=== PATIENT | male | born 1990 | race Caucasian/White ===

== ENCOUNTER 2016-09-09 14:27 | Outpatient (RCR) | payer MEDICAID ==
[~2016-09-09 14:27] MED LIST: CLTR1C90 TP; DIAZ2.5K RC; DIAZEPAM 20 MG RC; DIVA125C3 PO; DVL125C PO; TOPI15CA6 PO; TOPI25CA2 PO; [UNRECOGNIZED DRUG - CODE] MC; [UNRECOGNIZED DRUG - SUPPLY]
== END 2016-09-13 13:33 | disposition home or self-care (01) ==
PROVIDERS: ATTEND Psychiatry & Neurology Neurology
DX: R53.1 Weakness (principal)

== ENCOUNTER 2017-02-18 22:10 | Emergency (ER) | payer MEDICAID ==
[~2017-02-18] VITALS: Ht 149.9 cm; Wt 52.2 kg
[2017-02-18] MEDS ORDERED: TOPI100T11 PO (23:39)
[2017-02-18] MEDS ORDERED: LACTATED RINGERS 1,000 ML IV ONE (23:42)
[2017-02-18] MEDS ORDERED: ONDANSETRON 4 MG/2 ML (SDV) Z0FRAN IVP ONE (23:45)
--- OUTSIDE RECORDS SUMMARY | 2017-02-19 01:13 | XMS REPORT ---
Author Author DARIO MEZA [facility] Address [address] [place] [address] Care Team Providers Care Linen Supervisor Name Role Phone DARIO MEZA Unavailable PROBLEMS Type Condition ICD9-CM Code [id number] Code Onset Dates Condition Status SNOMED Code Problem Autism F84.0 Active 865061902 Problem Acquired intellectual disability F79 Active 890631702 Assessment Encounter for immunization Z23 Dec, Active 127316872 Assessment Seizure R56.9 Dec, Active 53841736 Problem Encounter for dental examination Z01.20 Active 650437986 Assessment Encounter to establish care Z76.89 Dec, Active 903448786 ALLERGIES Substance Reaction Event Type Date Status N.K.D.A. Unknown Non Drug Allergy Dec, Unknown SOCIAL HISTORY No smoking Hx information available PLAN OF CARE VITAL SIGNS Weight 118.2 lbs 2016-01-05 Heart Rate 78 bpm 2016-01-05 Respiratory Rate 20 2016-01-05 Oximetry 97 % 2016-01-05 Blood pressure systolic 132 mmHg 2016-01-05 Blood pressure diastolic 62 mmHg 2016-01-05 MEDICATIONS Medication Instructions Dosage Frequency Start Date End Date Duration Status Topamax 50 MG Orally 2 times a day 1 tablet 12h Active Depakote 250 MG Orally 2 times a day 1 tablet 12h Active Oxistat 1 % Externally twice a day 1 application to affected area 12h Active RESULTS No Results PROCEDURES Procedure Date Ordered Related Diagnosis Body Site MEASURE BLOOD OXYGEN LEVEL Jan 05, 2016 Office Visit, New Pt., Level 3 Jan 05, 2016 SINGLE IMMUNIZATION ADMIN Jan 05, 2016 FLUARIX QUAD P-FREE 3 AND UP .50 2016 Jan 05, 2016 IMMUNIZATIONS Vaccine Route Administration Date Status FLUARIX QUAD P-FREE 3 AND UP .50 2015 IM Intramuscular Jan 05, 2016 Administered
--- OUTSIDE RECORDS SUMMARY | 2017-02-19 01:13 | XMS REPORT | Continuity of Care Document ---
Author Author [facility] Organization [facility] Address Unknown Phone Unavailable Allergies Active Description Code Type Severity Reaction Onset Reported/Identified Relationship to Patient Clinical Status Yes peanut [id number] Drug Allergy Unknown N/A 05/30/2013 Medications There is no data. 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 04/27/2013 KIMMIE AG, LILI R Ot 507.0 FOOD/VOMIT PNEUMONITIS 04/27/2013 KIMMIE AG, LILI R Ot 695.89 ERYTHEMATOUS COND NEC 04/27/2013 KIMMIE AG, LILI R Ot 707.04 PRESSURE ULCER, HIP 04/27/2013 KIMMIE AG, LILI R Ot 707.22 PRESSURE ULCER, STAGE II 05/30/2013 MARC AG, MESFIN Guerrero Ot 465.9 ACUTE URI NOS 05/30/2013 MARC AG, MESFIN Guerrero Ot 786.2 COUGH 03/25/2015 MARTA AG, ALBARO Grandaos Ot F72 03/25/2015 MARTA AG, ALBARO Granados Ot L89.610 03/25/2015 ALBARO LOZANO MD Ot L89.620 04/03/2015 ALBARO LOZANO MD Ot F72 04/03/2015 ALBARO LOZANO MD Ot L89.610 04/03/2015 ALBARO LOZANO MD Ot L89.620 04/16/2015 LABARO LOZANO MD, Ot F72 04/16/2015 ALBARO LOZANO MD Ot L89.610 04/16/2015 ALBARO LOZANO MD Ot L89.620 04/23/2015 ALBARO LOZANO MD Ot L89.620 04/28/2015 ALBARO LOZANO MD, Ot L89.620 04/30/2015 ALBARO LOZANO MD Ot F72 SEVERE INTELLECTUAL DISABILITIES 04/30/2015 ALBARO LOZANO MD, Ot L89.610 PRESSURE ULCER OF RIGHT HEEL, UNSTAGEABL 04/30/2015 ALBARO LOZANO MD Ot L89.620 PRESSURE ULCER OF LEFT HEEL, UNSTAGEABLE 11/26/2015 ALBARO LOZANO MD Ot L89.620 PRESSURE ULCER OF LEFT HEEL, UNSTAGEABLE 11/27/2015 ALBARO LOZANO MD Ot L89.620 PRESSURE ULCER OF LEFT HEEL, UNSTAGEABLE 12/10/2015 ALBARO LOZANO MD Ot L89.620 PRESSURE ULCER OF LEFT HEEL, UNSTAGEABLE 08/26/2016 LANCE GILMORE MD Ot R53.1 WEAKNESS 09/23/2016 LANCE GILMORE MD Ot R53.1 WEAKNESS 09/28/2016 LANCE GILMORE MD Ot R53.1 WEAKNESS Procedures There is no data. Results There is no data. Encounters ACCT No. Visit Date/Time Discharge Status Pt. Type Provider Facility Loc./Unit Complaint [id number] 09/09/2016 14:27:00 09/13/2016 13:33:00 DIS Outpatient LANCE GILMORE MD [facility] REHAB WEAKNESS AND DECONDITIONING [id number] 04/13/2016 11:32:00 04/13/2016 23:59:59 CLS Preadmit LANCE GILMORE MD [facility] REHAB WEAKNESS, DECONDITIONING [id number] 04/30/2015 13:18:00 04/30/2015 15:00:00 DIS Outpatient ALBARO LOZANO MD [facility] WOUNDCARE [id number] 04/16/2015 15:52:00 04/16/2015 23:59:59 CLS Outpatient ALBARO LOZANO MD [facility] LAB PRESSURE ULCER L HEEL [id number] 05/29/2013 23:38:00 05/30/2013 01:03:00 DIS Emergency MARC AG, MESFIN Guerrero [facility] ER POSS CONGESTED,SORE THROAT [id number] 04/09/2013 00:40:00 04/27/2013 17:25:00 DIS Inpatient KIMMIE AG, LILI Gardner [facility] 4TH PNEUMONIA [id number] 07/03/2010 18:01:00 Document Registration
--- OUTSIDE RECORDS SUMMARY | 2017-02-19 01:13 | XMS REPORT | Clinical Summary ---
Author Author [facility] Organization [facility] Address Unknown Phone Unavailable Care Team Providers Care Cashier Host/Hostess Name Role Phone PCP Unavailable Source Comments Some departments are not documenting in the electronic medical record. If you do not see the information that you expected, contact Release of Information in the Health Information Management department at [phone] for further assistance in locating additional records.[facility] Allergies No Known Allergies Current Medications Prescription Sig. Disp. Refills Start End Date Status Date divalproex ER (DEPAKOTE Take 250 mg by mouth Active ER) 250 mg tablet daily. topiramate (TOPIRAGEN) 50 Take 50 mg by mouth twice Active mg tablet daily. Oxiconazole Nitrate 1 % Apply to affected area. 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, with intractable epilepsy Social History Tobacco Use Types Packs/Day Years Used Date Never Smoker Sex Assigned at Date Recorded Not on file Last Filed Vital Signs Vital Sign Reading Time Taken Blood Pressure 89/51 04/22/2014 10:25 AM CDT Pulse 76 04/22/2014 10:25 AM CDT Temperature 36.5 C (97.7 F) 04/22/2014 10:11 AM CDT Respiratory Rate - - Oxygen Saturation 96% 04/22/2014 10:25 AM CDT Inhaled Oxygen - - Concentration Weight 38.1 kg (84 lb) 04/22/2014 6:11 AM CDT Height 152.4 cm (5') 04/22/2014 6:11 AM CDT Body Mass Index 16.41 04/22/2014 6:11 AM CDT Plan of Treatment Health Maintenance Due Date Last Done Comments PHYSICAL (COMPREHENSIVE) 1997 EXAM PERTUSSIS VACCINE 2001 TETANUS VACCINE 06/14/2007 INFLUENZA VACCINE 09/14/2016 Results Not on filefrom Last 3 Months
--- OUTSIDE RECORDS SUMMARY | 2017-02-19 01:13 | XMS REPORT ---
Author Author CHRISTIN NEWSOME [facility] Address [address] [place] [address] Care Team Providers Care Metal Cnc Operator Name Role Phone CHRISTIN NEWSOME Unavailable PROBLEMS Type Condition ICD9-CM Code [id number] Code Onset Dates Condition Status SNOMED Code Problem Encounter for dental examination Z01.20 Active [id number] Assessment Encounter for dental examination Z01.20 16 Oct, 2015 Active 869943312 ALLERGIES Substance Reaction Event Type Date Status N.K.D.A. Unknown Non Drug Allergy Oct, Unknown SOCIAL HISTORY No smoking Hx information available PLAN OF CARE VITAL SIGNS MEDICATIONS Medication Instructions Dosage Frequency Start Date End Date Duration Status Topamax Active Depakote Active RESULTS No Results PROCEDURES Procedure Date Ordered Related Diagnosis Body Site LTD ORAL EVALUATION - PROBLEM FOCUS Oct 31, 2015 TOPICAL FLUORIDE VARNISH Oct 31, 2015 IMMUNIZATIONS No Known Immunizations
--- OUTSIDE RECORDS SUMMARY | 2017-02-19 01:13 | XMS REPORT ---
Author Author DARIO MEZA [facility] Address Unknown Phone Unavailable Care Team Providers Care [employer] Home Economics Teacher Name Role Phone DARIO MEZA CP Unavailable Allergies, Adverse Reactions, Alerts Substance Reaction Event Type N.K.D.A. Info Not Available Non Drug Allergy Problems Problem Type Condition Code Onset Dates Condition Status Problem Acquired intellectual disability F79 Active Problem Encounter for dental examination Z01.20 Active Problem Autism F84.0 Active Medications Medication Code System Code Instructions Start Date End Date Status Dosage Depakote [facility] [address]-75 250 MG Orally 2 times a day 1 tablet Topamax [facility] [address]-91 50 MG Orally 2 times a day 1 tablet Oxistat [facility] [address]-67 1 % Externally twice a day 1 application to affected area Results No Known Results Summary Purpose eClinical[employer] Submission
--- OUTSIDE RECORDS SUMMARY | 2017-02-19 01:13 | XMS REPORT ---
Author Author MELISSA KEN [facility] Address Unknown Phone Unavailable Care Team Providers Care Cardiology Consultant Name Role Phone MELISSA KEN CP Unavailable Allergies No Known Allergies Problems Problem Type Condition ICD-9 Code Onset Dates Condition Status Assessment Dental examination V72.2 Active Medications No Known Medications Procedures Procedure Coding System Code Date TOPICAL FLUORIDE VARNISH CPT-4 D1206 Oct 11, 2014 LTD ORAL EVALUATION - PROBLEM FOCUS CPT-4 D0140 Oct 11, 2014 Results No Known Results Summary Purpose [employer]ClinicalWorks Submission
[2017-02-19 01:40] LABS: BASOPHILS % (AUTO) 0 % (0-10); EOSINOPHILS # (AUTO) 0.1 10^3/uL (0.0-0.3); EOSINOPHILS % (AUTO) 1 % (0-10); HEMATOCRIT 40 % (40-54); HEMOGLOBIN 14.5 G/DL (13.3-17.7); LYMPHOCYTES # (AUTO) 2.6 X 10^3 (1.0-4.0); LYMPHOCYTES % (AUTO) 33 % (12-44); MEAN CORPUSCULAR HEMOGLOBIN 30 PG (25-34); MEAN CORPUSCULAR HGB CONC 36 G/DL (32-36); MEAN CORPUSCULAR VOLUME 84 FL (80-99); MEAN PLATELET VOLUME 8.9 FL (7.4-10.4); MONOCYTES # (AUTO) 1.1 X 10^3 (0.0-1.0); MONOCYTES % (AUTO) 14 % (0-12); NEUTROPHILS # (AUTO) 4.1 X 10^3 (1.8-7.8); NEUTROPHILS % (AUTO) 52 % (42-75); PLATELET COUNT 258 10^3/uL (130-400); RED BLOOD COUNT 4.79 10^6/uL (4.35-5.85); RED CELL DISTRIBUTION WIDTH 13.9 % (10.0-14.5)
[2017-02-19 01:58] LABS: ALANINE AMINOTRANSFERASE 25 U/L (0-55); ALKALINE PHOSPHATASE 72 U/L (40-136); AMYLASE 47 U/L (25-125); BILIRUBIN,TOTAL 0.3 MG/DL (0.1-1.0); BUN/CREATININE RATIO 16; CARBON DIOXIDE 17 MMOL/L (21-32); CHLORIDE 112 MMOL/L (98-107); CREATININE SERUM 0.67 MG/DL (0.60-1.30); GFR ESTIMATED > 60; GLUCOSE 105 MG/DL (70-105); LIPASE 15 U/L (8-78); POTASSIUM 3.8 MMOL/L (3.6-5.0); SODIUM 141 MMOL/L (135-145); TOTAL PROTEIN 7.2 GM/DL (6.4-8.2)
[2017-02-19 02:35] LABS: BILIRUBIN,URINE NEGATIVE (NEGATIVE); CLARITY,URINE CLEAR; COLOR,URINE YELLOW; GLUCOSE, URINE (UA) NEGATIVE (NEGATIVE); KETONES,URINE NEGATIVE (NEGATIVE); LEUKOCYTE ESTERASE ,URINE NEGATIVE (NEGATIVE); NITRITE,URINE NEGATIVE (NEGATIVE); PH,URINE 7 (5-9); PROTEIN,URINE 1+ (NEGATIVE); UROBILINOGEN,URINE 4 MG/DL (NORMAL)
[2017-02-19 02:41] LABS: AMORPHOUS SEDIMENT,UR FEW AMOR PHOSPHATE /LPF; BACTERIA,URINE NEGATIVE /HPF
[2017-02-19] MEDS ORDERED: LACT1CAP8 PO (02:42)
--- NOTE | 2017-02-19 02:42 | ED GI ---
General Chief Complaint: Abdominal/GI Problems Stated Complaint: N/V/D, ANDRIY GASTAUT SYNDROME Nursing Triage Note: Shared living provider reports pt started having diarrhea this am and vomiting starting at approx 2100. states pt has had poor appetite today and hardly been drinking. states is having normal urine output. pt brought in by wc accompanied by provider. 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 [employer] NO FEVER NO APPARENT ABDOMINAL TENDERNESS HAS HAS DECREASED APPETITE TODAY, AND HAS ONLY HAD 6-8 OZ FLUID SINCE 1600 PT IS INCONTINENT OF BOWEL/BLADDER NORMALLY, IS APPARENTLY VOIDING A NORMAL AMOUNT NO KNOWN SICK CONTACTS Allergies and Home Medications Allergies Coded Allergies: peanut (Verified Allergy, Unknown, 05/30/13) DIARRHEA Home Medications Divalproex Sodium 125 Mg Cap, 250 MG PO BID for 30 Days Prescribed by: JAYLON MALDONADO on 04/27/13 1408 Lactobacillus Acidophilus 1 Each Capsule, 2 EACH PO QID, #40 Prescribed by: PRUDENCE TORRES on 02/19/17 0242 Topiramate 100 Mg Tablet, 100 MG PO BID, (Reported) Review of Systems Constitutional: other (PT IN NON-VERBAL/ NON-COMMUNICATIVE) Gastrointestinal: See HPI Past Mkowzop-Ckduzm-Qoijid Hx Patient Social History Alcohol Use: Denies Use Recreational Drug Use: No Smoking Status: Never a Smoker 2nd Hand Smoke Exposure: No Recent Foreign Travel: No Contact w/Someone Who Travel: No Recent Infectious Disease Expo: No Recent Hopitalizations: No Physical Abuse: No Sexual Abuse: No Mistreated: No Fear: No Immunizations Up To Date Tetanus Booster (TDap): Less than 5yrs PED Vaccines UTD: Yes Seasonal Allergies Seasonal Allergies: No Surgeries History of Surgeries: Yes (VAGAL NERVE STIMULATOR) Surgeries: Neurological Respiratory History of Respiratory Disorde: No Cardiovascular History of Cardiac Disorders: No Neurological History of Neurological Disord: Yes (SHAKEN BABY SYNDROME; 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, NON- COMMUNICATIVE, ESSENTIALLY NON-AMBULATORYl; ANDRIY-GASTAUT SYNDROME) Neurological Disorders: Developmental Disorder, Seizure Disorder Reproductive System Hx Reproductive Disorders: No Sexually Transmitted Disease: No HIV/AIDS: No Genitourinary History of Genitourinary Disor: Yes (INCONTINENCE OF BLADDER) Gastrointestinal History of Gastrointestinal Di: Yes (INCONTINENCE OF BOWEL) Musculoskeletal History of Musculoskeletal Dis: Yes (NON-AMBULATORY) Musculoskeletal Disorders: Arthritis Endocrine History of Endocrine Disorders: No HEENT History of HEENT Disorders: No Cancer History of Cancer: No 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, DEVELOPMENTAL DISORDER, NON- VERBAL ) Suicide Risk Score: 1 Integumentary History of Skin or Integumenta: No Blood Transfusions History of Blood Disorders: No Adverse Reaction to a Blood Tr: No Physical Exam Vital Signs VS - Last 72 Hours, by Label 02/18/17 02/19/17 23:20 03:32 Temp 98.5 98.0 Pulse 100 101 Resp 18 17 B/P (MAP) 123/71 (88) Pulse Ox 98 98 O2 Delivery Room Air Room Air Capillary Refill : Less Than 3 Seconds General Appearance: WD/WN, other (LETHARGIC, NON-COMMUNICATIVE. KEEPS EYES CLOSED AT ALL TIMES) HEENT: other (ORAL MUCOSA MOIST) Neck: normal inspection Respiratory: normal breath sounds, no respiratory distress, no accessory muscle use Cardiovascular: regular rate, rhythm, no murmur Gastrointestinal: non tender, soft Extremities: no pedal edema, normal capillary refill Neurologic/Psychiatric: other (MENTATION AT BASELINE, NON-COMMUNICATIVE, CAN STAND FOR TRANSFERS WITH ASSIST. OTHERWISE IS NON-AMBULATORY) Skin: normal color, warm/dry Progress/Results/Core Measures Results/Orders Lab Results Laboratory Tests Test 02/19/17 01:20 02/19/17 02:28 Range/Units White Blood Count 8.0 4.3-11.0 10^3/uL Red Blood Count 4.79 4.35-5.85 10^6/uL Hemoglobin 14.5 13.3-17.7 G/DL Hematocrit 40 40-54 % Mean Corpuscular Volume 84 80-99 FL Mean Corpuscular Hemoglobin 30 25-34 PG Mean Corpuscular Hemoglobin Concent 36 32-36 G/DL Red Cell Distribution Width 13.9 10.0-14.5 % Platelet Count 258 130-400 10^3/uL Mean Platelet Volume 8.9 7.4-10.4 FL Neutrophils (%) (Auto) 52 42-75 % Lymphocytes (%) (Auto) 33 12-44 % Monocytes (%) (Auto) 14 H 0-12 % Eosinophils (%) (Auto) 1 0-10 % Basophils (%) (Auto) 0 0-10 % Neutrophils # (Auto) 4.1 1.8-7.8 X 10^3 Lymphocytes # (Auto) 2.6 1.0-4.0 X 10^3 Monocytes # (Auto) 1.1 H 0.0-1.0 X 10^3 Eosinophils # (Auto) 0.1 0.0-0.3 10^3/uL Basophils # (Auto) 0.0 0.0-0.1 10^3/uL Sodium Level 141 135-145 MMOL/L Potassium Level 3.8 3.6-5.0 MMOL/L Chloride Level 112 H 98-107 MMOL/L Carbon Dioxide Level 17 L 21-32 MMOL/L Anion Gap 12 5-14 MMOL/L Blood Urea Nitrogen 11 7-18 MG/DL Creatinine 0.67 0.60-1.30 MG/DL Estimat Glomerular Filtration Rate > 60 BUN/Creatinine Ratio 16 Glucose Level 105 70-105 MG/DL Calcium Level 9.0 8.5-10.1 MG/DL Total Bilirubin 0.3 0.1-1.0 MG/DL Aspartate Amino Transf (AST/SGOT) 22 5-34 U/L Alanine Aminotransferase (ALT/SGPT) 25 0-55 U/L Alkaline Phosphatase 72 40-136 U/L Total Protein 7.2 6.4-8.2 GM/DL Albumin 4.0 3.2-4.5 GM/DL Amylase Level 47 25-125 U/L Lipase 15 8-78 U/L Valproic Acid (Depakene) Level 53.0 50.0-100.0 UG/ML Urine Color YELLOW Urine Clarity CLEAR Urine pH 7 5-9 Urine Specific [place] 1.015 L 1.016-1.022 Urine Protein 1+ H NEGATIVE Urine Glucose (UA) NEGATIVE NEGATIVE Urine Ketones NEGATIVE NEGATIVE Urine Nitrite NEGATIVE NEGATIVE Urine Bilirubin NEGATIVE NEGATIVE Urine Urobilinogen 4 H NORMAL MG/DL Urine Leukocyte Esterase NEGATIVE NEGATIVE Urine RBC (Auto) NEGATIVE NEGATIVE Urine RBC NONE /HPF Urine WBC NONE /HPF Urine Squamous Epithelial Cells NONE /HPF Urine Crystals PRESENT H /LPF Urine Amorphous Sediment FEW OLGA LIDIA PHOSPHATE H /LPF Urine Bacteria NEGATIVE /HPF Urine Casts NONE /LPF Urine Mucus SMALL H /LPF Urine Culture Indicated NO My Orders Orders - PRUDENCE TORRES DO Saline Lock/Iv-Start (02/18/17 23:42) Monitor-Rhythm Ecg Trace Only (02/18/17 23:42) Orthostatic Vital Signs (Adult (02/18/17 23:42) Amylase (02/18/17 23:42) Cbc With Automated Diff (02/18/17 23:42) Comprehensive Metabolic Panel (02/18/17 23:42) Lipase (02/18/17 23:42) Ua Culture If Indicated (02/18/17 23:42) Saline Lock/Iv-Start (02/18/17 23:42) Lactated Ringers (Lr 1000 Ml Iv Solution (02/18/17 23:42) Ondansetron Injection (Zofran Injectio (02/18/17 23:45) Valproic Acid (02/19/17 02:42) Rx-Ondansetron Po (Rx-Zofran Po) (02/19/17 03:19) Medications Given in ED Current Medications Medications Dose Ordered Sig/Reza Route Start Time Stop Time Status Last Admin Dose Admin Lactated Ringer's 1,000 ml @ 0 mls/hr Q0M ONCE IV 02/18/17 23:42 02/18/17 23:43 DC 02/19/17 01:27 0 MLS/HR Ondansetron HCl 8 mg ONCE ONCE IVP 02/18/17 23:45 02/18/17 23:46 DC 02/19/17 01:27 8 MG Vital Signs/I&O Vital Sign - Last 12Hours 02/18/17 02/19/17 23:20 03:32 Temp 98.5 98.0 Pulse 100 101 Resp 18 17 B/P (MAP) 123/71 (88) Pulse Ox 98 98 O2 Delivery Room Air Room Air Blood Pressure Mean: 88 Progress Note : Progress Note NO VOMITING DURING ER STAY. PT TOLERATING WATER PRIOR TO DISMISSAL TRIALS MANAGER REPORTS ONE SMALL LOOSE STOOL, NOT WITNESSED BY ER STAFF. Departure Impression Impression: Primary Impression: Gastroenteritis Disposition: 01 HOME, SELF-CARE Condition: Improved Departure-Patient Inst. Referrals: DARIO MEZA (Family) Primary Care Physician Patient Instructions: [id number], Viral Gastroenteritis, Adult ( DC) Add. Discharge Instructions: CLEAR LIQUIDS--WATER, BROTH, JELLO, GATORADE TOMORROW IF YOU ARE BETTER, ADD BRATS DIET TO CLEAR LIQUIDS--BANANAS, RICE, APPLESAUCE, TOAST, SALTINES FOLLOW UP WITH YOUR DR ON TUESDAY, RETURN TO ER IF WORSE All discharge instructions reviewed with patient and/or family. Voiced understanding. Scripts Ondansetron (Zofran Odt) 4 Mg Tab.rapdis 4 MG PO Q4H for Nausea/Vomiting, #10 TAB Prov: PRUDENCE TORRES DO 02/19/17 Lactobacillus Acidophilus (Acidophilus) 1 Each Capsule 2 EACH PO QID, #40 CAP Prov: MELISSAMOLLYA K DO 02/19/17 PRUDENCE TORRES DO Feb 19, 2017 02:42
[2017-02-19] MEDS ORDERED: RX-ONDANSETRON 4 MG ODT (ZOFRAN) PPK #4 ONE (03:19)
[2017-02-19 03:32] VITALS: BP 132/77
[2017-02-19] MEDS ORDERED: ONDA4TAB8 PO (04:06)
== END 2017-02-19 03:34 | disposition home or self-care (01) ==
LOC: EDUNIT# 22:10 → ER 22:12
DX: K52.9 Noninfective gastroenteritis and colitis, unspecified (principal); G40.909 Epilepsy, unspecified, not intractable, without status epilepticus; M19.90 Unspecified osteoarthritis, unspecified site
CPT/HCPCS: 36415; 80053; 80164; 81000; 82150; 83690; 85025; 93041

== ENCOUNTER 2017-02-24 23:53 | Emergency (ER) | payer MEDICAID ==
[~2017-02-24] VITALS: Ht 149.9 cm; Wt 52.2 kg
[~2017-02-24 23:53] MED LIST changes: +LACT1CAP8 PO; +ONDA4TAB8 PO; +TOPI100T11 PO
--- OUTSIDE RECORDS SUMMARY | 2017-02-24 23:58 | XMS REPORT | Clinical Summary ---
Author Author [facility] Organization [facility] Address Unknown Phone Unavailable Care Team Providers Care Silk Weaver Name Role Phone PCP Unavailable Source Comments Some departments are not documenting in the electronic medical record. If you do not see the information that you expected, contact Release of Information in the Health Information Management department at [phone] for further assistance in locating additional records.[facility] Allergies No Known Allergies Current Medications Prescription [...]
--- OUTSIDE RECORDS SUMMARY | 2017-02-24 23:59 | XMS REPORT | Continuity of Care Document ---
Author Author [facility] Organization [facility] Address Unknown Phone Unavailable Allergies Active Description Code Type Severity Reaction Onset Reported/Identified Relationship to Patient Clinical Status Yes peanut [id number] Drug Allergy Unknown N/A 05/30/2013 Medications There is no data. Problems Date Dx Coded Attending Type Code Diagnosis Diagnosed By 01/13/1499 MARTA AG, ALBARO Granados Ot F72 SEVERE INTELLECTUAL DISABILITIES 01/13/1499 MARTA AG, ALBARO Granados Ot L89.610 PRESSURE ULCER OF RIGHT HEEL, UNSTAGEABL 01/13/1499 ALBARO LOZANO MD Ot L89.620 PRESSURE ULCER [...] Ot 786.2 COUGH 03/25/2015 MARTA AG, ALBARO Granados Ot F72 03/25/2015 MARTA AG, ALBARO Granados Ot L89.610 03/25/2015 ALBARO LOZANO MD Ot L89.620 04/03/2015 ALBARO LOZANO MD Ot F72 04/03/2015 ALBARO LOZANO MD Ot L89.610 04/03/2015 ALBARO LOZANO MD Ot L89.620 04/16/2015 ALBARO LOZANO MD Ot F72 04/16/2015 ALBARO LOZANO MD Ot L89.610 04/16/2015 ALBARO LOZANO MD, Ot L89.620 04/23/2015 ALBARO LOZANO MD Ot L89.620 04/28/2015 ALBARO LOZANO MD, Ot L89.620 04/30/2015 ALBRAO LOZANO MD Ot F72 SEVERE INTELLECTUAL DISABILITIES 04/30/2015 ALBARO LOZANO MD, Ot L89.610 PRESSURE ULCER OF RIGHT HEEL, UNSTAGEABL 04/30/2015 ALBARO LOZANO MD Ot L89.620 PRESSURE ULCER OF LEFT HEEL, UNSTAGEABLE 11/26/2015 ALBARO LOZANO MD, Ot L89.620 PRESSURE ULCER OF LEFT HEEL, UNSTAGEABLE 11/27/2015 ALBARO LOZANO MD, Ot L89.620 PRESSURE ULCER OF LEFT HEEL, UNSTAGEABLE 12/10/2015 ALBARO LOZANO MD Ot L89.620 PRESSURE ULCER OF LEFT HEEL, UNSTAGEABLE 08/26/2016 LANCE GILMORE MD Ot R53.1 WEAKNESS 09/13/2016 LANCE GILMORE MD Ot R53.1 WEAKNESS 09/23/2016 LANCE GILMORE MD Ot R53.1 WEAKNESS 09/28/2016 LANCE GILMORE MD Ot R53.1 WEAKNESS Procedures There is no data. Results Test Result Range Complete blood count (CBC) with automated white blood cell (WBC) differential - 02/19/17 01:20 Blood leukocytes automated count (number/volume) 8.0 10*3/uL 4.3-11.0 Blood erythrocytes automated count (number/volume) 4.79 10*6/uL 4.35-5.85 Venous blood hemoglobin measurement (mass/volume) 14.5 g/dL 13.3-17.7 Blood hematocrit (volume fraction) 40 % 40-54 Automated erythrocyte mean corpuscular volume 84 [foz_us] 80-99 Automated erythrocyte mean corpuscular hemoglobin (mass per erythrocyte) 30 pg 25-34 Automated erythrocyte mean corpuscular hemoglobin concentration measurement ( mass/volume) 36 g/dL 32-36 Automated erythrocyte distribution width ratio 13.9 % 10.0-14.5 Automated blood platelet count (count/volume) 258 10*3/uL 130-400 Automated blood platelet mean volume measurement 8.9 [foz_us] 7.4-10.4 Automated blood neutrophils/100 leukocytes 52 % 42-75 Automated blood lymphocytes/100 leukocytes 33 % 12-44 Blood monocytes/100 leukocytes 14 % 0-12 Automated blood eosinophils/100 leukocytes 1 % 0-10 Automated blood basophils/100 leukocytes 0 % 0-10 Blood neutrophils automated count (number/volume) 4.1 10*3 1.8-7.8 Blood lymphocytes automated count (number/volume) 2.6 10*3 1.0-4.0 Blood monocytes automated count (number/volume) 1.1 10*3 0.0-1.0 Automated eosinophil count 0.1 10*3/uL 0.0-0.3 Automated blood basophil count (count/volume) 0.0 10*3/uL 0.0-0.1 Comprehensive metabolic panel - 02/19/17 01:20 Serum or plasma sodium measurement (moles/volume) 141 mmol/L 135-145 Serum or plasma potassium measurement (moles/volume) 3.8 mmol/L 3.6-5.0 Serum or plasma chloride measurement (moles/volume) 112 mmol/L 98-107 Carbon dioxide 17 mmol/L 21-32 Serum or plasma anion gap determination (moles/volume) 12 mmol/L 5-14 Serum or plasma urea nitrogen measurement (mass/volume) 11 mg/dL 7-18 Serum or plasma creatinine measurement (mass/volume) 0.67 mg/dL 0.60-1.30 Serum or plasma urea nitrogen/creatinine mass ratio 16 NRG Serum or plasma creatinine measurement with calculation of estimated glomerular filtration rate > NRG Serum or plasma glucose measurement (mass/volume) 105 mg/dL 70-105 Serum or plasma calcium measurement (mass/volume) 9.0 mg/dL 8.5-10.1 Serum or plasma total bilirubin measurement (mass/volume) 0.3 mg/dL 0.1-1.0 Serum or plasma alkaline phosphatase measurement (enzymatic activity/volume) 72 U/L 40-136 Serum or plasma aspartate aminotransferase measurement (enzymatic activity/ volume) 22 U/L 5-34 Serum or plasma alanine aminotransferase measurement (enzymatic activity/volume ) 25 U/L 0-55 Serum or plasma protein measurement (mass/volume) 7.2 g/dL 6.4-8.2 Serum or plasma albumin measurement (mass/volume) 4.0 g/dL 3.2-4.5 Serum or plasma amylase measurement (enzymatic activity/volume) - 02/19/17 01: 20 Serum or plasma amylase measurement (enzymatic activity/volume) 47 U /L 25-125 Lipase - 02/19/17 01:20 Lipase 15 U/L 8-78 Valproic acid - 02/19/17 01:20 Valproic acid 53.0 ug/mL 50.0-100.0 Complete urinalysis with reflex to culture - 02/19/17 02:28 Urine color determination YELLOW NRG Urine clarity determination CLEAR NRG Urine pH measurement by test strip 7 5-9 Specific gravity of urine by test strip 1.015 1.016- 1.022 Urine protein assay by test strip, semi-quantitative 1+ NEGATIVE Urine glucose detection by automated test strip NEGATIVE NEGATIVE Erythrocytes detection in urine sediment by light microscopy NEGATIVE NEGATIVE Urine ketones detection by automated test strip NEGATIVE NEGATIVE Urine nitrite detection by test strip NEGATIVE NEGATIVE Urine total bilirubin detection by test strip NEGATIVE NEGATIVE Urine urobilinogen measurement by automated test strip (mass/volume) 4 mg/dL NORMAL Urine leukocyte esterase detection by dipstick NEGATIVE NEGATIVE Automated urine sediment erythrocyte count by microscopy (number/high power field) NONE NRG Automated urine sediment leukocyte count by microscopy (number/high power field ) NONE NRG Bacteria detection in urine sediment by light microscopy NEGATIVE NRG Squamous epithelial cells detection in urine sediment by light microscopy NONE NRG Crystals detection in urine sediment by light microscopy PRESENT NRG Casts detection in urine sediment by light microscopy NONE NRG Mucus detection in urine sediment by light microscopy SMALL NRG Complete urinalysis with reflex to culture NO NRG Amorphous sediment detection in urine sediment by light microscopy FEW OLGA LIDIA PHOSPHATE NRG Encounters ACCT No. Visit Date/Time Discharge Status Pt. Type Provider Facility Loc./Unit Complaint [id number] 02/18/2017 22:12:00 02/19/2017 03:34:00 DIS Emergency MELISSA DO, PRUDENCE K [facility] ER N/V/D, ANDRIY GASTAUT SYNDROME [id number] 09/09/2016 14:27:00 09/13/2016 13:33:00 DIS Outpatient LANCE GILMORE MD [facility] REHAB WEAKNESS AND DECONDITIONING [id number] 04/13/2016 11:32:00 04/13/2016 23:59:59 CLS Preadmit DEIRDRE AG, LANCE Rosario [facility] REHAB WEAKNESS, DECONDITIONING [id number] 04/30/2015 13:18:00 04/30/2015 15:00:00 DIS Outpatient ALBARO LOZANO MD [facility] WOUNDCARE [id number] 04/16/2015 15:52:00 04/16/2015 23:59:59 CLS Outpatient ALBARO LOZANO MD [facility] LAB PRESSURE ULCER L HEEL [id number] 05/29/2013 23:38:00 05/30/2013 01:03:00 DIS Emergency MARC AG, MESFIN Guerrero [facility] ER POSS CONGESTED,SORE THROAT [id number] 04/09/2013 00:40:00 04/27/2013 17:25:00 DIS Inpatient KIMMIE AG, LILI Gardner [facility] 4TH PNEUMONIA [id number] 07/03/2010 18:01:00 Document Registration
[2017-02-25] MEDS ORDERED: IBUPROFEN SUSP 100MG/5ML (MOTRIN) UDC PO ONE (00:30)
--- NOTE | 2017-02-25 00:50 | ED General ---
General Chief Complaint: Fever-Adult/Adol Stated Complaint: SEIZURE,101.7 TEMP Nursing Triage Note: BROUGHT IN WITH FEVER TODAY. Nursing Sepsis Screen: No Definite Risk Source of Information: Patient Exam Limitations: No Limitations History of Present Illness Time Seen by Provider: 00:05 Initial Comments This 26-year-old [place] patient is brought to the emergency room by his host mother care provider for evaluation of fever and seizure. His temperature was up to 101.7. She has not observed any other symptoms such as vomiting, pain, cough, dyspnea, etc. He does have seizures infrequently. His seizure tonight was a typical seizure for him and lasted about one minute. Patient has not received any medications as mother has to have an order for any medications given. She does not have an order for Tylenol or ibuprofen. Patient is not verbal and cannot contribute to the history. Allergies and Home Medications Allergies Coded Allergies: peanut (Verified Allergy, Unknown, 05/30/13) DIARRHEA Home Medications Divalproex Sodium 125 Mg Cap, 250 MG PO BID for 30 Days Prescribed by: JAYLON MALDONADO on 04/27/13 1408 Lactobacillus Acidophilus 1 Each Capsule, 2 EACH PO QID, #40 Prescribed by: PRUDENCE TORRES on 02/19/17 0242 Ondansetron 4 Mg Tab.rapdis, 4 MG PO Q4H, #10 Prescribed by: PRUDENCE TORRES on 02/19/17 0406 Topiramate 100 Mg Tablet, 100 MG PO BID, (Reported) Constitutional: see HPI EENTM: no symptoms reported Respiratory: no symptoms reported Cardiovascular: no symptoms reported Gastrointestinal: no symptoms reported Genitourinary: no symptoms reported Musculoskeletal: no symptoms reported Skin: no symptoms reported Psychiatric/Neurological: See HPI Hematologic/Lymphatic: No Symptoms Reported Immunological/Allergic: no symptoms reported Past Uxquaut-Aoohob-Ywrljk Hx Patient Social History Alcohol Use: Denies Use Recreational Drug Use: No Smoking Status: Never a Smoker 2nd Hand Smoke Exposure: No Recent Foreign Travel: No Contact w/Someone Who Travel: No Recent Infectious Disease Expo: No Recent Hopitalizations: No Immunizations Up To Date Tetanus Booster (TDap): Less than 5yrs PED Vaccines UTD: Yes Seasonal Allergies Seasonal Allergies: No Surgeries History of Surgeries: Yes (VAGAL NERVE STIMULATOR) Surgeries: Neurological Respiratory History of Respiratory Disorde: No Cardiovascular History of Cardiac Disorders: No Neurological History of Neurological Disord: Yes Neurological Disorders: Developmental Disorder, Seizure Disorder Reproductive System Hx Reproductive Disorders: No Sexually Transmitted Disease: No HIV/AIDS: No Genitourinary History of Genitourinary Disor: Yes (INCONTINENCE OF BLADDER) Gastrointestinal History of Gastrointestinal Di: Yes (INCONTINENCE OF BOWEL) Musculoskeletal History of Musculoskeletal Dis: Yes (NON-AMBULATORY) Musculoskeletal Disorders: Arthritis Endocrine History of Endocrine Disorders: No HEENT History of HEENT Disorders: No Cancer History of Cancer: No 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, DEVELOPMENTAL DISORDER, NON- VERBAL ) Integumentary History of Skin or Integumenta: No Blood Transfusions History of Blood Disorders: No Adverse Reaction to a Blood Tr: No Physical Exam Vital Signs Vital Sign - Last 12Hours 02/25/17 00:08 Temp 99.8 Pulse 114 Resp 20 B/P (MAP) 114/60 (78) Pulse Ox 97 O2 Delivery Room Air Capillary Refill : Less Than 3 Seconds General Appearance: No Apparent Distress, WD/WN HEENT: PERRL/EOMI, TMs Normal, Other (patient is not cooperative with examination of the pharynx) Neck: Normal Inspection, Supple Respiratory: Lungs Clear, Normal Breath Sounds, No Accessory Muscle Use, No Respiratory Distress Cardiovascular: Regular Rate, Rhythm, No Edema, No Murmur Gastrointestinal: Normal Bowel Sounds, Non Tender, Soft Extremity: Normal Inspection, No Pedal Edema Neurologic/Psychiatric: Alert, No Motor/Sensory Deficits (at baseline for patient), Normal Mood/Affect (at baseline for patient) Progress/Results/Core Measures Suspected Sepsis Recent Fever Within 48 Hours: No Infection Criteria Present: None New/Unexplained Altered Menta: No Sepsis Screen: No Definite Risk Sepsis Diagnosis: SIRS Temperature:99.8 Pulse: 114 Respiratory Rate: 20 Blood Pressure 114 /60 Mean: 78 Results/Orders Micro Results Microbiology 02/25/17 Influenza Types A,B Antigen (RAJ) - Final, Complete My Orders Orders - JUANITO SIMPSON MD Influenza A And B Antigens (02/25/17 00:05) Ibuprofen Suspension (Motrin Suspension) (02/25/17 00:30) Medications Given in ED Current Medications Medications Dose Ordered Sig/Reza Route Start Time Stop Time Status Last Admin Dose Admin Ibuprofen 500 mg ONCE ONCE PO 02/25/17 00:30 02/25/17 00:31 DC 02/25/17 00:34 500 MG Vital Signs/I&O Vital Sign - Last 12Hours 02/25/17 02/25/17 02/25/17 00:08 00:34 00:54 Temp 99.8 99.8 99.2 Pulse 114 110 Resp 20 20 B/P (MAP) 114/60 (78) Pulse Ox 97 98 O2 Delivery Room Air Room Air Capillary Refill : Less Than 3 Seconds Blood Pressure Mean: 78 Progress Note : Time: 00:46 Progress Note Influenza screen was negative. I discussed the potential for further workup with his staff. I presented the option of further workup versus treating fever and observing over the next day or so. Patient's worker states it is extremely difficult to obtain blood and urine specimens from this patient. She prefers to treat the fever and observe him over the next day or so. She commits to returning if symptoms worsen. Ibuprofen was given in the emergency room. His worker had not given any medications for fever at home as she does not have an order to do so. Since she is a contracted staff member she is required to have an order for any [id number] medications. Departure Impression Impression: Primary Impression: Fever Qualified Codes: R50.9 - Fever, unspecified Additional Impression: Seizure Disposition: 01 HOME, SELF-CARE Condition: Stable Departure-Patient Inst. Decision time for Depature: 00:48 Referrals: LANCE GILMORE MD (PCP) Primary Care Physician DARIO MEZA (Family) Primary Care Physician Patient Instructions: Fever, Adult (DC) Add. Discharge Instructions: Encourage plenty of hydration. You may give ibuprofen up to 500 mg every 6 hours as needed for pain or fever. You may also give Tylenol (acetaminophen) up to 500 mg every 4 hours as needed for pain or fever. Return to care if symptoms worsen or if not improving within 24 hours. All discharge instructions reviewed with patient and/or family. Voiced understanding. JUANITO SIMPSON MD Feb 25, 2017 00:50
[2017-02-25 00:54] VITALS: BP 114/60
== END 2017-02-25 00:52 | disposition home or self-care (01) ==
LOC: EDUNIT# 23:53 → ER 23:55
DX: F50.9 Eating disorder, unspecified (principal); G40.909 Epilepsy, unspecified, not intractable, without status epilepticus; F84.0 Autistic disorder; Z87.448 Personal history of other diseases of urinary system
CPT/HCPCS: 87804; 99283